=== PATIENT | male | born 1940 | race Two or more races ===

== ENCOUNTER 2019-01-08 10:33 | Outpatient (CLI) | payer MEDICARE, BC ==
[~2019-01-08 10:33] MED LIST: ASPI-496 PO; ATOR40TA78 PO; BIMA2.5D EACHEYE; BRIM5DRO2 EACHEYE; DORZ10DR26 EACHEYE; INSU100V8 SQ; METF500T17 PO; METO25TA91 PO; QUIN10TA15 PO; SITA100T PO
== END 2019-01-08 23:59 | disposition home or self-care (01) ==
LOC: CVU 10:33
PROVIDERS: ATTEND Internal Medicine
DX: I25.810 Atherosclerosis of coronary artery bypass graft(s) without angina pectoris (principal); I10 Essential (primary) hypertension; E11.9 Type 2 diabetes mellitus without complications
CPT/HCPCS: 93306

== ENCOUNTER 2019-01-15 11:59 | Outpatient (CLI) | payer MEDICARE, BC | END 2019-01-15 23:59 | disposition home or self-care (01) | LOC: CFH 11:59 | PROVIDERS: ATTEND Internal Medicine Cardiovascular Disease | DX: I25.9 Chronic ischemic heart disease, unspecified (principal); I10 Essential (primary) hypertension; I25.810 Atherosclerosis of coronary artery bypass graft(s) without angina pectoris | CPT/HCPCS: 78452; 93017; A9502 ==